=== PATIENT | male | born 1955 | race Caucasian/White ===

== ENCOUNTER 2018-09-27 15:56 | Emergency (ER) | payer BC ==
[~2018-09-27] VITALS: Ht 185.4 cm; Wt 105.5 kg
[2018-09-27 17:04] LABS: COLLECTION METHOD CLEAN CATCH
[2018-09-27 17:11] LABS: MUCOUS Present /lpf; PH 5 (5-8); SQUAMOUS EPITHELIAL None Seen /hpf; URINE APPEARANCE Hazy; URINE BACTERIA None Seen /hpf; URINE BILIRUBIN Negative (NEGATIVE); URINE BLOOD 2+ (NEGATIVE); URINE COLOR Yellow; URINE GLUCOSE Negative (NEGATIVE); URINE KETONE Negative (NEGATIVE); URINE LEUKOCYTE ESTERASE Negative (NEGATIVE); URINE NITRATE Negative (NEGATIVE); URINE PROTEIN(semi-quant) Negative (NEGATIVE); URINE RBC 20-50 /hpf; URINE UROBILINOGEN Negative (NEGATIVE)
[2018-09-27 17:24] LABS: BASO # 0.1 (0.0-0.2); BASO % 0.9 % (0.0-2.0); EOS # 0.2 (0.0-0.7); EOS % 2.4 % (0-4.0); GRAN # 4.3 (1.4-6.5); GRAN % 64.8 % (42.2-75.2); HEMATOCRIT 41.1 % (42.0-52.0); HEMOGLOBIN 14.1 g/dl (13.5-18.0); LYMPH # 1.5 (1.2-3.4); LYMPH % 22.8 % (20.0-51.0); MEAN CELL VOLUME 93 fl (80.0-100.0); MEAN CORPUSCULAR HEMOGLOBIN 32 pg (27.0-31.0); MEAN CORPUSCULAR HGB CONC 34 g/dl (33.0-37.0); MEAN PLATELET VOLUME 11.4 fl (7.4-10.4); MONO # 0.6 (0.1-0.6); MONO % 8.9 % (1.7-9.3); PLATELET COUNT 166 K/mm3 (130-400); RED BLOOD COUNT 4.43 M/mm3 (4.20-5.60); REDCELL DISTRIBUTION WIDTH-CV 13.2 % (11.5-14.5)
[2018-09-27 17:37] LABS: ALANINE AMINOTRANSFERASE 22 U/L (21-72); ALBUMIN 4.3 gm/dL (3.5-5.0); ALKALINE PHOSPHATASE 83 U/L (50-136); ANION GAP 10 mmol/L (7-16); AST,SGOT 27 U/L (15-37); BILIRUBIN,TOTAL 0.5 mg/dL (0.0-1.0); BLOOD UREA NITROGEN 29 mg/dL (9-20); C-REACTIVE PROTEIN < 0.5 mg/dL (0.0-0.9); CALCIUM 9.4 mg/dL (8.4-10.2); CARBON DIOXIDE 23 mmol/L (22-30); CHLORIDE 109 mmol/L (98-107); GLUCOSE 92 mg/dL (74-106); LIPASE 36 U/L (23-300); POTASSIUM 4.1 mmol/L (3.4-5.0); SODIUM 141 mmol/L (137-145); TOTAL PROTEIN 7.2 gm/dL (6.4-8.2)
[2018-09-27] MEDS ORDERED: NORCO 325 MG-51 TAB PO (19:24)
[2018-09-27] MEDS ORDERED: ZOFRAN ODT4 MG PO (19:24)
[2018-09-27 19:28] VITALS: BP 133/81; PULSE 86; TEMP 98.2
== END 2018-09-27 19:41 | disposition home or self-care (01) ==
LOC: COL.ER 15:56
PROVIDERS: Physician Assistant
DX: N20.0 Calculus of kidney (principal); Z87.891 Personal history of nicotine dependence
CPT/HCPCS: J1885; J2405; J7030; Q9967

== ENCOUNTER → 2018-10-12 | Outpatient (CLI) | payer BC ==
[~2018-10-12] MED LIST: NORCO 325 MG-51 TAB PO; ZOFRAN ODT4 MG PO
[2018-10-12 15:38] LABS: COLLECTION METHOD CLEAN CATCH
[2018-10-12 15:52] LABS: BASO # 0.1 (0.0-0.2); BASO % 1.2 % (0.0-2.0); EOS # 0.1 (0.0-0.7); EOS % 2.4 % (0-4.0); GRAN # 3.6 (1.4-6.5); GRAN % 61.1 % (42.2-75.2); HEMATOCRIT 41.7 % (42.0-52.0); HEMOGLOBIN 14.4 g/dl (13.5-18.0); LYMPH # 1.5 (1.2-3.4); LYMPH % 26.3 % (20.0-51.0); MEAN CELL VOLUME 92 fl (80.0-100.0); MEAN CORPUSCULAR HEMOGLOBIN 32 pg (27.0-31.0); MEAN CORPUSCULAR HGB CONC 35 g/dl (33.0-37.0); MEAN PLATELET VOLUME 11.1 fl (7.4-10.4); MONO # 0.5 (0.1-0.6); MONO % 8.7 % (1.7-9.3); PLATELET COUNT 222 K/mm3 (130-400); RED BLOOD COUNT 4.53 M/mm3 (4.20-5.60); REDCELL DISTRIBUTION WIDTH-CV 12.7 % (11.5-14.5)
[2018-10-12 15:54] LABS: MUCOUS Present /lpf; PH 6 (5-8); SQUAMOUS EPITHELIAL None Seen /hpf; URINE APPEARANCE Clear; URINE BACTERIA None Seen /hpf; URINE BILIRUBIN Negative (NEGATIVE); URINE BLOOD Negative (NEGATIVE); URINE COLOR Yellow; URINE GLUCOSE Negative (NEGATIVE); URINE KETONE Negative (NEGATIVE); URINE LEUKOCYTE ESTERASE Negative (NEGATIVE); URINE NITRATE Negative (NEGATIVE); URINE PROTEIN(semi-quant) Negative (NEGATIVE); URINE RBC 0-2 /hpf; URINE UROBILINOGEN Negative (NEGATIVE)
[2018-10-12 16:02] LABS: ALBUMIN 4.6 gm/dL (3.5-5.0); BILIRUBIN,TOTAL 0.5 mg/dL (0.0-1.0); CALCIUM 9.8 mg/dL (8.4-10.2); CREATININE, serum 0.79 (0.66-1.25); POTASSIUM 3.7 mmol/L (3.4-5.0); TOTAL PROTEIN 7.5 gm/dL (6.4-8.2)
[2018-10-12 16:33] LABS: ERYTHROCYTE SEDIMENTATION RATE 6 mm/hr (0-30)
== END ==
LOC: COL.LAB 14:57
PROVIDERS: Family Medicine
DX: R10.31 Right lower quadrant pain (principal)

== ENCOUNTER 2018-10-29 10:58 | Day surgery (SDC) | payer BC ==
[2018-10-29] VITALS (7 sets, daily range): BP systolic 113–162; BP diastolic 64–92; PULSE 77–84; TEMP 98–98.3
[~2018-10-29] VITALS: Ht 185.4 cm; Wt 110.3 kg
[2018-10-29] MEDS ORDERED: ALEVE 220MG220 MG PO ×2 (11:36→14:29)
[2018-10-29] MEDS ORDERED: MOTRIN 600600 MG/TAB PO (14:27)
[2018-10-29] MEDS ORDERED: COLACE 100100 MG/CAP PO (14:27)
[2018-10-29] MEDS ORDERED: NORCO 325 MG-51 TAB PO (14:28)
--- NOTE | 2018-10-29 14:35 | NUR ---
Patient returns to room 6 per cart and is awake and alert. Temp 97.7 and room air sats 95%. IV fluids infusing LH and site free of redness or swelling. King set dressing noted on lap sites x3 dry and abdomen soft. Denies pain or nausea. Drinking orange juice and eating muffin. Spouse in room.
--- NOTE | 2018-10-29 14:50 | NUR ---
Tolerated juice and muffin without nausea or vomiting. States that he is having some incisional soreness.
--- NOTE | 2018-10-29 15:05 | NUR ---
States that the incisional soreness is getting worse. Unable to rate pain. States it is just sore.
--- NOTE | 2018-10-29 15:11 | NUR ---
Medicated with Monarch 5mg one tab. Will continue to monitor.
--- NOTE | 2018-10-29 15:20 | NUR ---
Resting with and spouse in room. No further complaints of pain or nausea.
--- NOTE | 2018-10-29 15:35 | NUR ---
Resting and states that the abdominal soreness and incisional soreness is getting better.
--- NOTE | 2018-10-29 15:40 | NUR ---
Assisted up to the bathroom and is able to void. Gait steady with transferring.
--- NOTE | 2018-10-29 15:49 | NUR ---
Patient is able to dress self with minimal assist from spouse. INT needle discontinued. Site free of redness.
--- NOTE | 2018-10-29 16:00 | NUR ---
Given dismissal instructions and voices understanding of instructions and follow up as scheduled. Provided scripts for Osmin Rdz, and instructed to begin Colace BID.
--- NOTE | 2018-10-29 16:10 | NUR ---
Patient dismissed to home per private vehicle driven by spouse and taken to the main entrance per wheelchair by Jaida WORKMAN and assisted into vehicle. Dismissal instructions in hand.
== END 2018-10-29 16:10 | disposition home or self-care (01) ==
LOC: SDCO 10:58
DX: K35.80 Unspecified acute appendicitis (principal); E78.5 Hyperlipidemia, unspecified; E66.9 Obesity, unspecified; M19.90 Unspecified osteoarthritis, unspecified site; I10 Essential (primary) hypertension; Z82.49 Family history of ischemic heart disease and other diseases of the circulatory system; Z87.891 Personal history of nicotine dependence
CPT/HCPCS: J0690; J1100; J1885; J2250; J2405; J2704; J2710; J3010; J7120

== ENCOUNTER 2020-05-09 17:30 | Emergency (ER) | payer MEDICARE, BC ==
[~2020-05-09] VITALS: Ht 185.4 cm; Wt 97.3 kg
[~2020-05-09 17:30] MED LIST changes: +ALEVE 220MG220 MG PO; +COLACE 100100 MG/CAP PO; +MOTRIN 600600 MG/TAB PO
[2020-05-09 17:44] VITALS: TEMP 97.6
[2020-05-09] MEDS ORDERED: MEDROL 4MG DOSPA4 MG PO (18:08)
[2020-05-09] MEDS ORDERED: LIDODERM 5% PATC1 EA TP (18:08)
[2020-05-09 18:32] VITALS: BP 168/74; PULSE 82
== END 2020-05-09 18:32 | disposition home or self-care (01) ==
LOC: COL.ER 17:30
DX: M54.2 Cervicalgia (principal); I10 Essential (primary) hypertension; R20.2 Paresthesia of skin; Z87.891 Personal history of nicotine dependence

== ENCOUNTER 2020-05-31 09:12 | Day surgery (SDC) | payer MEDICARE, BC ==
[~2020-05-31] VITALS: Ht 185.4 cm; Wt 99.2 kg
[2020-05-31] VITALS (11 sets, daily range): BP systolic 128–140; BP diastolic 81–94; PULSE 66–81; TEMP 99.2
[~2020-05-31 09:12] MED LIST changes: +LIDODERM 5% PATC1 EA TP; +MEDROL 4MG DOSPA4 MG PO
[2020-05-31] MEDS ORDERED: IMDUR 30MG30 MG/TAB PO (09:51)
[2020-05-31 09:52] LABS: HEMATOCRIT 40.8 % (42.0-52.0); HEMOGLOBIN 13.9 g/dl (13.5-18.0); MEAN CELL VOLUME 97 fl (80.0-100.0); MEAN CORPUSCULAR HEMOGLOBIN 33 pg (27.0-31.0); MEAN CORPUSCULAR HGB CONC 34 g/dl (33.0-37.0); MEAN PLATELET VOLUME 11.3 fl (7.4-10.4); PLATELET COUNT 137 K/mm3 (130-400); RED BLOOD COUNT 4.21 M/mm3 (4.20-5.60); REDCELL DISTRIBUTION WIDTH-CV 13.1 % (11.5-14.5)
[2020-05-31] MEDS ORDERED: NITROSTAT0.4 MG/TAB SL (09:54)
[2020-05-31 10:02] LABS: ALBUMIN 4.3 gm/dL (3.5-5.0); BILIRUBIN,TOTAL 0.7 mg/dL (0.0-1.0); CALCIUM 9.6 mg/dL (8.4-10.2); CREATININE, serum 0.74 (0.66-1.25); MAGNESIUM 2.2 mg/dL (1.6-2.3); POTASSIUM 3.8 mmol/L (3.4-5.0); TOTAL PROTEIN 7.4 gm/dL (6.4-8.2)
[2020-05-31 10:22] LABS: PROTHROMBIN TIME 10.6 SECONDS (9.7-12.8)
[2020-05-31 10:25] LABS: PARTIAL THROMBOPLASTIN TIME 26.9 SECONDS (26.0-37.0)
[2020-05-31] MEDS ORDERED: COREG12.5 MG PO (10:43)
[2020-05-31] MEDS ORDERED: COZAAR100 MG PO (10:44)
[2020-05-31] MEDS ORDERED: CYMBALTA 30MG30 MG PO (10:44)
[2020-05-31] MEDS ORDERED: ROBAXIN 50500 MG/TAB PO (10:44)
[2020-05-31] MEDS ORDERED: ASPIRIN 81M81 MG/TA2 PO (10:45)
[2020-05-31] MEDS ORDERED: LIPITOR 40MG TA40 MG PO ×2 (10:45→14:04)
[2020-05-31] MEDS ORDERED: FLEXERIL 1010 MG/TAB PO (10:46)
[2020-05-31] MEDS ORDERED: TYLENOL 325MG325 MG PO (10:46)
[2020-05-31] MEDS ORDERED: DUO-KAPS1 CAP PO (10:47)
--- NOTE | 2020-05-31 15:11 | NUR ---
Discharge instructions given to pt.Pt verbalizes understanding.INT removed,catheter tip intact.Right wrist observed clean,dry,soft to touch.
--- NOTE | 2020-05-31 15:30 | NUR ---
pT ESCORTED OUT VIA WHEELCHAIR BY THIS NURSE
== END 2020-05-31 17:04 | disposition home or self-care (01) ==
LOC: COL.CAR 09:12
PROVIDERS: Internal Medicine Cardiovascular Disease
DX: I25.10 Atherosclerotic heart disease of native coronary artery without angina pectoris (principal); I10 Essential (primary) hypertension; I48.0 Paroxysmal atrial fibrillation; I49.2 Junctional premature depolarization; I44.7 Left bundle-branch block, unspecified; M54.9 Dorsalgia, unspecified; M54.2 Cervicalgia; E78.2 Mixed hyperlipidemia; R94.39 Abnormal result of other cardiovascular function study; E66.9 Obesity, unspecified; E78.5 Hyperlipidemia, unspecified; Z87.891 Personal history of nicotine dependence; Z20.822 Contact with and (suspected) exposure to COVID-19; Z79.82 Long term (current) use of aspirin; Z79.899 Other long term (current) drug therapy
CPT/HCPCS: J1644; J2250; J3010

== ENCOUNTER → 2020-06-13 | Outpatient (CLI) | payer MEDICARE, BC ==
[~2020-06-13] MED LIST changes: +ASPIRIN 81M81 MG/TA2 PO; +COREG12.5 MG PO; +COZAAR100 MG PO; +CYMBALTA 30MG30 MG PO; +DUO-KAPS1 CAP PO; +FLEXERIL 1010 MG/TAB PO; +IMDUR 30MG30 MG/TAB PO; +LIPITOR 40MG TA40 MG PO; +NITROSTAT0.4 MG/TAB SL; +ROBAXIN 50500 MG/TAB PO; +TYLENOL 325MG325 MG PO
== END ==
LOC: MHCPAIN 10:53
DX: M47.812 Spondylosis without myelopathy or radiculopathy, cervical region (principal); M79.18 Myalgia, other site; M54.6 Pain in thoracic spine; M54.2 Cervicalgia
CPT/HCPCS: G0463; J1040

== ENCOUNTER → 2020-07-18 | Outpatient (CLI) | payer MEDICARE, BC | LOC: MHCPAIN 13:13 | DX: M47.812 Spondylosis without myelopathy or radiculopathy, cervical region (principal); M54.2 Cervicalgia; G89.29 Other chronic pain | CPT/HCPCS: G0463 ==

== ENCOUNTER → 2021-08-14 | Outpatient (CLI) | payer MEDICARE, BC | LOC: MHCPAIN 11:16 | DX: M79.18 Myalgia, other site (principal); M54.2 Cervicalgia | CPT/HCPCS: G0463; J1040 ==